=== PATIENT | male | born 1965 ===

== ENCOUNTER 2020-10-02 18:34 | Emergency (ER) | payer SELFPAY ==
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
[2020-10-02 19:15] LABS: Basophils # (Auto) 0.1 K/mm3 (0.0-0.1); Basophils % (Auto) 0.8 % (0.0-1.8); Eosinophils % (Auto) 0.2 % (0.0-4.3); Hematocrit 40.9 % (35.5-45.6); Hemoglobin 13.9 gm/dl (11.8-15.2); Lymphocytes # (Auto) 1.1 K/mm3 (1.2-5.4); Mean Corpuscular HGB Conc 34 % (32-34); Mean Corpuscular Volume 94 fl (84-94); Monocytes # (Auto) 1.5 K/mm3 (0.0-0.8); Monocytes % (Auto) 10.9 % (0.0-7.3); Platelet Count 690 K/mm3 (140-440); Red Blood Count 4.35 M/mm3 (3.65-5.03); Red Cell Distribution Width 13.8 % (13.2-15.2)
[2020-10-02 19:35] LABS: Alanine Aminotransferase 26 units/L (7-56); Albumin 2.6 g/dL (3.9-5); BUN/Creatinine Ratio 9; Blood Urea Nitrogen 8 mg/dL (9-20); Calcium 8.8 mg/dL (8.4-10.2); Hemolysis Index 20
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
[2020-10-02] MEDS ORDERED: DIPHtheria,PERTUSSIS(ACELL),TETANUS VACCINE/PF 0.5 ML VIAL IM ONE (22:04)
[2020-10-02] MEDS ORDERED: HYDROmorphone 1 MG/1 ML INJ IV ONE (22:04)
[2020-10-02] MEDS ORDERED: SODIUM CHLORIDE 0.9% 1000 ML 1,000 ML IV ONE (22:04)
[2020-10-02] MEDS ORDERED: PIPERACIL/TAZOBACTA 4.5/NS 100 4.5 GM/100 ML VIAL IV ONE (22:05)
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
[2020-10-02] MEDS ORDERED: VANCOMYCIN/NS 1 GM/250 ML 1 GM/250 ML BAG IV ONE (23:55)
[2020-10-03] MEDS ORDERED: diphenhydrAMINE 50 MG/ML VIAL IV ONE (00:11)
[2020-10-03 03:11] VITALS: BP 153/68
== END 2020-10-03 03:12 | disposition other institution (70) ==
LOC: ED 18:34
DX: T24.601A Corrosion of second degree of unspecified site of right lower limb, except ankle and foot, initial encounter (principal); R65.10 Systemic inflammatory response syndrome (SIRS) of non-infectious origin without acute organ dysfunction; E87.1 Hypo-osmolality and hyponatremia; Y93.89 Activity, other specified; Y92.89 Other specified places as the place of occurrence of the external cause; Y99.8 Other external cause status
CPT/HCPCS: 36415; 73552; 73590; 80053; 82140; 85025; 90471; 90715; 96365; 96368; 96375; 99291; J1170; J1200; J2543; J3370; J7030